=== PATIENT | male | born 1990 | race Caucasian/White ===

== ENCOUNTER 2021-02-14 08:48 | Outpatient (CLI) | payer OTHER, SELFPAY ==
--- NOTE | 2021-02-14 | DI.CT_ITS ---
Exam(s) CT CHEST PE CTA EXAM: CT CHEST PE CTA CLINICAL HISTORY: F/U STATUS OF PE, H/O PE. TECHNIQUE: Imaging Protocol: CT angiography of the chest was performed using pulmonary embolus renan col. Multi planar reconstructions were performed. CONTRAST MATERIAL: Intravenous: Omnipaque 350 Contrast volume: 100 cc COMPARISON: CT CT ANGIO CHEST PE PROTOCOL from 07/15/[address] ANGIO CHEST PE PROTOCOL from 07/15/[address] CHEST WO CON from 07/18/2020 FINDINGS: CHEST: PULMONARY ARTERIES: There are no intraluminal filling defects to suggest acute pulmonary emboli.The p reviously present bilateral pulmonary emboli have resolved. LUNGS: Mild increased markings in both lung bases but significant improvement when compared to 2020.. There presently no pleural effusions. No new ominous pulmonary nodules. No focal findings i n the trachea and mainstem bronchi. MEDIASTINUM: There is no hilar nor mediastinal adenopathy. Visualized thyroid unremarkable. CARDIAC: Heart size is upper normal. There is no pericardial effusion.Caliber of the thoracic aorta is within normal limits. There is no significant shift of the interventricular septum. PARTIALLY VISUALIZED UPPERMOST ABDOMEN: No obvious findings OSSEOUS: No significant osseous lesions.. IMPRESSION: 1. No evidence of acute pulmonary emboli. Previously present bilateral intraluminal filling defects in the pulmonary arteries have resolved. 2. Mild increased markings both lung bases, also exhibiting some proven when compared to the prior ou tside CT scan of July 2020. Previously present small pleural effusions have also resolved. 3. There is no intrathoracic adenopathy. Heart size is normal. No pericardial effusion. No shift of the interventricular septum. No evidenc e of aortic dissection. RADIATION DOSE DELIVERED: 309.08mGy.cm Total DLP DATA REPOSITORY: All CT scans at this facility are submitted to the National Radiology Data Registry (NRDR) Dose Index Registry (DIR) with the [employer] ([employer]). RADIATION OPTIMIZATION: All CT scans at this facility use at least one of these dose optimization te chniques: automated exposure control; mA and/or kV adjustment per patient size (includes targeted exa ms where dose is matched to clinical indication); or iterative reconstruction.
[2021-02-14] MEDS: Omnipaque 350 MG/ML 100 ML BTL IJ (09:16)
[2021-02-14] MEDS: Normal Saline - Diluent 50 ML VIAL IV (09:18)
== END 2021-02-14 09:08 ==
PROVIDERS: Visit Provider Nurse Practitioner Adult Health
DX: Z86.711 Personal history of pulmonary embolism (principal)
CPT/HCPCS: 71275; J3490

== ENCOUNTER 2021-11-10 15:48 | Emergency (ER) | payer OTHER, SELFPAY ==
[2021-11-10 15:51] VITALS: BP 138/80; PULSE 90; RESP 18; TEMP 37.1; O2SAT 98
--- NOTE | 2021-11-10 16:00 | DI.RAD_ITS ---
Exam(s) XR HAND RT COMPLETE XR FINGER RT MIDDLE EXAM: XR FINGER RT MIDDLE CLINICAL HISTORY: R/O Fracture/Dislocation Limited 2 view. TECHNIQUE: 2D digital imaging was performed. Three views of the hand. Two views middle finger.. COMPARISON: None FINDINGS: There has been previous fusion of the middle and proximal phalanges of the 3rd finger. A small metal lic anchor is seen in the middle phalanx of the 4th finger related to prior surgery. There has been amputation of the majority of the 2nd finger. There is no evidence of an acute fracture or dislocati on. IMPRESSION: Postsurgical changes. No evidence of acute fracture, dislocation, or subluxation. DATA REPOSITORY: RADIATION DOSE DELIVERED:
--- NOTE | 2021-11-10 16:01 | W.ED.GENAD ---
Discharge Plan Disposition Patient Disposition: HOME Condition: Stable Discharge Details Clinical Impression: Fracture of finger, middle phalanx, right, closed Primary Care Provider: [facility] Provider: Florina Ho Home Meds and New Rx's Prescriptions: Continued clonidine HCl 0.3 mg Tablet 0.3 mg PO DAILY 0RF aspirin 81 mg Tablet,Delayed Release (Dr/Ec) 81 mg PO DAILY 0RF acetaminophen 500 mg Tablet 1,000 mg PO BID 0RF clonidine HCl 0.2 mg Tablet 0.2 mg PO DAILY 0RF famotidine 20 mg Tablet 20 mg PO BID 0RF bupropion HCl 75 mg Tablet 150 mg PO DAILY 0RF sertraline 50 mg Tablet 150 mg PO DAILY 0RF fluticasone propionate 110 mcg/actuation Hfa Aerosol Inhaler 2 puff INHALATION PRN PRN0RF Eliquis 5 mg Tablet 5 mg PO BID 0RF melatonin 3 mg Capsule 9 mg PO HS 0RF Discharge Instructions Instructions: Finger Fracture (ED) Additional Instructions: Tova taped for splinting. Please remove if too tight. Rest, ice, compression, elevation when sitting or laying down. Please take Tylenol or Ibuprofen with food every 4-6 hours as needed for pain and swelling. Please follow-up with Ortho in the next 1 to 2 weeks. You are placed on a follow-up list they will call you for an appointment. Referrals: Rodríguez Purcell MD [ [facility] STAFF PHYSICIAN] - 1 week Medical Decision Making 31-year-old male presents to the ER with chief complaint of right middle finger injury. Patient reports pain and new deformity to his distal phalange E which occurred while playing basketball prior to arrival. Reports having his finger jammed. 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 He reports that he does not normally have flexion to his middle finger. After jamming his finger he noted increased deformity, pain and there is a subungual hematoma. He does have distal sensation intact. Cap refill less than 2 seconds. No other injury or complaints noted. He last took some Tylenol this morning at his normal medications. He is in police custody at this time. Patient has a past medical history of PEs, Hand x-ray ordered. 600 mg ibuprofen also ordered. Patient has an ice pack. 164: ortho consult. 1714: Images sent to Dr. Sylwia Reece [facility] on-call of patient's digit and the x-ray images. He recommends splint and follow-up in the Ortho office. We will tova tape for splinting instructed patient and officers on rest ice and elevation, Tylenol and ibuprofen. They verbalized understanding. We will place a referral for Ortho. Due to patient's incarcerated status we cannot apply an aluminum splint at this time. This text was generated using Fipe[employer] system, please disregard any oddities of phrase or misspellings. Imaging Data Radiologic Study: Imaging: X-Ray Radiologist's impression: Imaging protocol: XR Right hand. Views: 3 or more views. COMPARISON: No relevant prior studies available. FINDINGS: Bones/joints: No acute fracture or dislocation. Partial amputation of the 2nd digit. Plate and screw fixation of the 3rd digit with bony fusion at the PIP joint. Suture anchor in the 4th digit middle phalanx. Chronic deformity of the 4th digit proximal phalanx. Soft tissues: Normal. IMPRESSION: 1. No acute fracture or dislocation. 2. Chronic posttraumatic/postsurgical changes of the digits with no evidence of hardware complication. Thank you for allowing us to participate in the care of your patient. Dictated and Authenticated by: David Aguilar MD Radiologic Study #2: Imaging: X-Ray Radiologist's impression: Imaging protocol: XR Right fingers. Views: Minimum 2 views. COMPARISON: CR XR HAND RT COMPLETE 11/10/2021 4:09 PM FINDINGS: Bones/joints: Cortical irregularity of the distal aspect of the 3rd digit middle phalanx with subtle adjacent soft tissue density which may represent an age indeterminate fracture. Malleable plate and screw hardware appear intact. Partially visualized 2nd digit partial amputation. Soft tissues: Normal. IMPRESSION: Possible age-indeterminate fracture of the distal aspect of the 3rd digit middle phalanx. Thank you for allowing us to participate in the care of your patient. Dictated and Authenticated by: David Aguilar MD [facility] General Mode of arrival: ambulatory. Date/Time Provider Initiated Documentation: 11/10/21 15:53. Limitations to Documentation: no limitations. Information obtained by: patient, police, RN notes reviewed and old records reviewed. HPI Narrative: 31-year-old male presents to the ER with chief complaint of right middle finger injury. Patient reports pain and new deformity to his distal phalange E which occurred while playing basketball prior to arrival. Reports having his finger jammed. 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 He reports that he does not normally have flexion to his middle finger. After jamming his finger he noted increased deformity, pain and there is a subungual hematoma. He does have distal sensation intact. Cap refill less than 2 seconds. No other injury or complaints noted. He last took some Tylenol this morning at his normal medications. He is in police custody at this time. Patient has a hx of PE's and is on Eliquis. Related Data Home Medications Medication Instructions Recorded Confirmed acetaminophen 500 mg tablet 1,000 mg PO BID 11/10/21 11/10/21 apixaban 5 mg tablet (Eliquis) 5 mg PO BID 11/10/21 11/10/21 aspirin 81 mg tablet,delayed 81 mg PO DAILY 11/10/21 11/10/21 release bupropion HCl 75 mg tablet 150 mg PO DAILY 11/10/21 11/10/21 clonidine HCl 0.2 mg tablet 0.2 mg PO DAILY 11/10/21 11/10/21 clonidine HCl 0.3 mg tablet 0.3 mg PO DAILY 11/10/21 11/10/21 famotidine 20 mg tablet 20 mg PO BID 11/10/21 11/10/21 fluticasone propionate 110 2 puff INHALATION PRN PRN 11/10/21 11/10/21 mcg/actuation HFA aerosol inhaler melatonin 3 mg capsule 9 mg PO HS 11/10/21 11/10/21 sertraline 50 mg tablet 150 mg PO DAILY 11/10/21 11/10/21 Allergies Allergy/AdvReac Type Severity Reaction Status Date / Time amoxicillin Allergy Unverified 11/10/21 15:55 onion AdvReac Uncoded 11/10/21 15:55 General Stated Complaint: Orthopedic NATHANAEL: 4 Review of Systems Musculoskeletal Musculoskeletal: Reports as per HPI, Reports deformity (Right middle finger), Reports arthralgias and Reports limited range of motion PFSH All Active Problems (Updated 11/10/21 @ 17:20 by Florina Ho) Fracture of finger, middle phalanx, right, closed (Acute) Social History (Reviewed 11/10/21 @ 16:04 by Florina Gonzales Smoking/Tobacco Use Status: Never Smoking risk assessment performed?: Yes Alcohol Intake: former Substance use type: does not use Exam Extrem Right upper extremity: hand Details: abnormal to inspection, neurosensory exam normal, ecchymosis Location: of the 3rd digit Location: at the nailbed and crepitus Location: of the 3rd digit Location: at the distal phalanx; Negative for not of the 2nd digit Hand/finger images: 1. Amputation noted, healed 2. Deformity, dorsally angulated. Subungual hematoma noted. Patient reports that normally his finger is more in the flexed position and he does have limited movement to his DIP and PIP from previous surgery. He does have distal sensation intact. Course Vital Signs Vital signs: Vital Signs Temperature 37.1 C 11/10/21 15:51 Pulse 90 11/10/21 15:51 Respiratory Rate 18 11/10/21 15:51 Blood Pressure 138/80 11/10/21 15:51 Pulse Oximetry 98 11/10/21 15:51 Temperature 37.1 C 11/10/21 15:51 Temperature Source Temporal Artery Scan 11/10/21 15:51 Pulse 90 11/10/21 15:51 Respiratory Rate 18 11/10/21 15:51 Respiratory Effort 11/10/21 15:57 Blood Pressure 138/80 11/10/21 15:51 Blood Pressure Position Sitting 11/10/21 15:51 Pulse Oximetry 98 11/10/21 15:51 Oxygen Delivery Method Room Air 11/10/21 15:51 Oxygen Flow Rate 0 11/10/21 15:51 Pain Level 8 11/10/21 15:51
[2021-11-10] MEDS: Ibuprofen 600 MG TAB PO (16:12)
--- NOTE | 2021-11-10 16:40 | DI.VRAD_ITS ---
PROCEDURE INFORMATION: Exam: XR Right Hand Exam date and time: 11/10/2021 4:09 PM Age: 31 years old Clinical indication: Injury or trauma; Other: Right middle finger injury. HX of multiple hand SX; Blunt trauma (contusions or hematomas); Prior surgery; Surgery date: 6+ months TECHNIQUE: Imaging protocol: XR Right hand. Views: 3 or more views. COMPARISON: No relevant prior studies available. FINDINGS: Bones/joints: No acute fracture or dislocation. Partial amputation of the 2nd digit. Plate and screw fixation of the 3rd digit with bony fusion at the PIP joint. Suture anchor in the 4th digit middle phalanx. Chronic deformity of the 4th digit proximal phalanx. Soft tissues: Normal. IMPRESSION: 1. No acute fracture or dislocation. 2. Chronic posttraumatic/postsurgical changes of the digits with no evidence of hardware complication. Dictated and Authenticated by: David Aguilar MD. Ordering:TORI Heaton MD
--- NOTE | 2021-11-10 16:55 | DI.VRAD_ITS ---
PROCEDURE INFORMATION: Exam: XR Right Finger(s) Exam date and time: 11/10/2021 4:40 PM Age: 31 years old Clinical indication: Injury or trauma; Other: R/O FX; Sprain or strain; Right; Middle finger TECHNIQUE: Imaging protocol: XR Right fingers. Views: Minimum 2 views. COMPARISON: CR XR HAND RT COMPLETE 11/10/2021 4:09 PM FINDINGS: Bones/joints: Cortical irregularity of the distal aspect of the 3rd digit middle phalanx with subtle adjacent soft tissue density which may represent an age indeterminate fracture. Malleable plate and screw hardware appear intact. Partially visualized 2nd digit partial amputation. Soft tissues: Normal. IMPRESSION: Possible age-indeterminate fracture of the distal aspect of the 3rd digit middle phalanx. Dictated and Authenticated by: David Aguilar MD. Ordering:TORI Heaton MD
== END 2021-11-10 17:33 | disposition home or self-care (01) ==
PROVIDERS: Emergency Provider Registered Nurse Emergency; PCP Emergency Medicine
DX: S62.622A Displaced fracture of middle phalanx of right middle finger, initial encounter for closed fracture (principal); W21.05XA Struck by basketball, initial encounter
CPT/HCPCS: 99284; 73130; 73140; 99283